=== PATIENT | female | born 1940 | race Caucasian/White ===

== ENCOUNTER → 2016-12-20 | Outpatient (CLI) | payer OTHER ==
[~2016-12-20] MED LIST: ATV/1 PO; CHOL100027 PO; CLOB-65 EXT; DICY10CA55 PO; DRON400T PO; FLUT220A INH; LOSA100T65 PO; METO25TA56 PO; NITR0.4S UT; NYSS/ PO; OPTIRAY 320 IV PRN; PANT40TA PO; POLY335025 PO; RANI300T2 PO
--- NOTE | 2016-12-20 10:15 | DIAGNOSTIC IMAGING REPORT ---
CT OF THE CHEST WITH IV CONTRAST CLINICAL HISTORY: Pulmonary nodules. COMPARISON STUDY: Chest CT July 26, 2014. TECHNIQUE: Following IV administration of 94 mL of Optiray-320, helical axial images of the chest were obtained. Sagittal and coronal reconstructions were viewed as well as maximal intensity projections on an independent 3-D workstation. A dose lowering technique was utilized adhering to the principles of ALARA. CT DOSE: 448.49 mGy.cm FINDINGS: No enlarged axillary, mediastinal or hilar lymph nodes are noted. There is no pericardial effusion. Mild cardiomegaly is noted. Central airways are patent. No pneumothorax or pleural effusion is present. There is no consolidation to suggest pneumonia. Subpleural opacities reflect atelectasis. Multiple calcified granulomas within the lungs are noted. A 4 mm noncalcified right middle lobe nodule shown on image 183 of 306 is unchanged since chest CT of March 27, 2009. A 5 mm right lower lobe nodule along the major fissure shown on image 151 is also unchanged. There are no new pulmonary nodules. There are no suspicious pulmonary nodules. No suspicious osseous lesions are present. The gallbladder is surgically absent. IMPRESSION: 1. No change in multiple noncalcified and calcified pulmonary nodules since exam of March 27, 2009. These are benign given stability. No suspicious pulmonary nodules. 2. No acute intrathoracic findings. Electronically signed by: Darío Medina M.D. 12/20/2016 10:13 AM Dictated Date/Time: 12/20/2016 10:03 AM
== END | disposition home or self-care (01) ==
LOC: C.CTS 09:36
PROVIDERS: ATTEND Physician Assistant
DX: R91.8 Other nonspecific abnormal finding of lung field (principal)

== ENCOUNTER 2020-11-18 01:43 | Inpatient (IN) ==
[2020-11-18] MEDS ORDERED: ONDANSETRON INJ 2 MG/ML 2 ML VIAL IV STA (03:15)
[2020-11-18] MEDS ORDERED: ONDANSETRON INJ 2 MG/ML 2 ML VIAL ONE (03:15)
[2020-11-18 03:25] LABS: Basophils # (auto) 0.01 K/uL (0-0.2); Basophils % (auto) 0.1 %; Eosinophils # (auto) 0.02 K/uL (0-0.5); Eosinophils % (auto) 0.3 %; Hematocrit (blood only) 33.1 % (37-47); Hemoglobin 11.1 g/dL (12.0-16.0); Immature Granulocytes # (auto) 0.11 K/uL (0.00-0.02); Immature Granulocytes % (auto) 1.5 %; Lymphocytes # (auto) 1.02 K/uL (1.2-3.4); Mean Corpuscular Hemoglobin 30.9 pg (25-34); Mean Corpuscular Hgb Conc 33.5 g/dL (32-36); Mean Corpuscular Volume 92.2 fL (80-100); Mean Platelet Volume 9.2 fL (7.4-10.4); Monocytes # (auto) 1.05 K/uL (0.11-0.59); Monocytes % (auto) 14.4 %; Neutrophils # (auto) 5.06 K/uL (1.4-6.5); Neutrophils % (auto) 69.7 %; Platelet Count 347 K/uL (130-400); RDW Coefficient of Variation 13.1 % (11.5-14.5); RDW Standard Deviation 43.9 fL (36.4-46.3); Red Blood Count 3.59 M/uL (4.2-5.4); White Blood Count 7.27 K/uL (4.8-10.8)
[2020-11-18 03:49] LABS: Partial Thromboplastin Ratio 4.1; Prothrombin Time > 90.0 Seconds (9.0-12.0)
[2020-11-18 03:52] LABS: Alanine Aminotransferase 24 U/L (12-78); Aspartate Aminotransferase 18 U/L (15-37); Blood Urea Nitrogen 12 mg/dl (7-18); Calcium 8.8 mg/dl (8.5-10.1); Carbon Dioxide 26 mmol/L (21-32); Chloride 104 mmol/L (98-107); Est GFR (African American) 54.7 ml/min; Est GFR (Non-African American) 47.2 ml/min; Glucose 105 mg/dl (70-99); Magnesium 1.8 mg/dl (1.8-2.4); Potassium 3.8 mmol/L (3.5-5.1); Sodium 134 mmol/L (136-145)
[2020-11-18 03:57] LABS: Albumin Globulin Ratio 0.8 (0.9-2); Alkaline Phosphatase 78 U/L (45-117); Bilirubin,Total 0.6 mg/dl (0.2-1); Globulin 3.7 gm/dl (2.5-4.0); Total Protein 6.7 gm/dl (6.4-8.2); Troponin I < 0.015 ng/ml (0-0.045)
[2020-11-18 03:59] LABS: INR > 10.7 (0.9-1.1); Partial Thromboplastin Time 107.9 Seconds (21.0-31.0)
--- NOTE | 2020-11-18 04:07 | Emergency Department Note ---
History of Present Illness General Chief complaint: Shortness of Breath/Dyspnea Stated complaint: SOB, FEVER, COVID+ Time Seen by Provider: 11/18/20 03:07 Source: patient Mode of arrival: ambulatory Limitations: no limitations History of Present Illness Provider complaint: fevers, shortness of breath Onset (ago): week(s) 2 Location: chest Maximum Pain Intensity: 10 Exacerbated By: + movement Associated symptoms: + cough, + fever/chills, + headaches, + loss of appetite, + malaise and + shortness of breath Treatments prior to arrival: other This is a 80-year-old female presents the emergency department complaining of 2 weeks of fevers, chills, shortness of breath, and cough. Patient states she has been seen at [facility] several times, was given a course of antibiotics as well as a course of prednisone but continued to feel worse. She states she was seen and evaluated there earlier yesterday and had a CAT scan which she states was reported to her as "clear". Patient states her fevers at home have been as high as 102, she did have several days without a fever and then the fevers recurred and today were 100.4. Patient states her cough is productive of green sputum, no hemoptysis. She states she does have chills, body aches, and joint pains. She states he intermittently feels tightness in the chest although denies any other overt chest pain. She states she has been nauseated, has gagged on the mucus at times with frequent coughing although no overt vomiting. Patient denies any change in bowel or bladder function. Patient denies any known sick contact. Gold rowland states in her youth she smoked for approximately 2 years, however she does have a history of COPD and does follow with pulmonology. Patient states she is anticoagulated due to history of atrial fibrillation. Pt seen during a time of high acuity and national emergency pandemic while wearing PPE. Home Medications Medication Instructions Recorded Confirmed Type albuterol sulfate 90 mcg/actuation 2 puff INHALATION Q4H PRN g 03/25/20 11/18/20 History aerosol inhaler cholecalciferol (vitamin D3) 25 75 mcg PO DAILY cap 03/25/20 11/18/20 History mcg (1,000 unit) capsule cyanocobalamin (vitamin B-12) 1,000 mcg PO DAILY 03/25/20 11/18/20 History 1,000 mcg capsule flecainide 50 mg tablet 50 mg PO Q12H 03/25/20 11/18/20 History lorazepam 1 mg tablet 0.5 mg PO BID tab 03/25/20 11/18/20 History losartan 100 mg tablet 100 mg PO DAILY 03/25/20 11/18/20 History nitroglycerin 0.4 mg sublingual 0.4 mg SUBLINGUAL Q5M PRN 03/25/20 11/18/20 History tablet polyethylene glycol 3350 17 gram 17 g PO DAILY PRN 03/25/20 11/18/20 History oral powder packet (Miralax) rosuvastatin 20 mg tablet (Crestor) 20 mg PO DAILY 03/25/20 11/18/20 History warfarin 4 mg tablet See Rx Instructions .ROUTE .COMPLEX 03/25/20 11/18/20 History hydrochlorothiazide 25 mg tablet 25 mg PO .COMPLEX 06/02/20 11/18/20 History magnesium oxide 400 mg PO DAILY 06/02/20 11/18/20 History benzonatate 100 mg capsule 100 mg PO Q4 PRN 11/18/20 11/18/20 History gabapentin 100 mg capsule 100 mg PO HS 11/18/20 11/18/20 History metoprolol succinate 25 mg 25 mg PO DAILY 11/18/20 11/18/20 History tablet,extended release 24 hr ondansetron HCl 4 mg tablet 4 mg PO Q8 PRN 11/18/20 11/18/20 History ropinirole 0.5 mg tablet 0.5 mg PO HS 11/18/20 11/18/20 History zolpidem 5 mg tablet (Ambien) 2.5 - 5 mg PO HS PRN 11/18/20 11/18/20 History Allergies Allergy/AdvReac Type Severity Reaction Status Date / Time adhesive Allergy Unknown BLISTERS Verified 11/18/20 02:23 atorvastatin Allergy Unknown MUSCLE PAIN Verified 11/18/20 02:23 clavulanic acid Allergy Unknown unknown Unverified 11/18/20 02:23 dexamethasone [From Maxitrol] Allergy Unknown Unknown Verified 11/18/20 02:23 latex Allergy Unknown BLISTERS Unverified 11/18/20 02:23 neomycin [From Maxitrol] Allergy Unknown Unknown Verified 11/18/20 02:23 niacin Allergy Unknown RASH Unverified 11/18/20 02:23 polymyxin B [From Maxitrol] Allergy Unknown Unknown Verified 11/18/20 02:23 propranolol Allergy Unknown short of Verified 11/18/20 02:23 breath pyridoxine Allergy Unknown Unknown Verified 11/18/20 02:23 azithromycin Allergy Unknown Verified 11/18/20 02:23 amoxicillin AdvReac Unknown upset Unverified 11/18/20 02:23 stomach ciprofloxacin AdvReac Unknown nausea and Unverified 11/18/20 02:23 vomiting Past Med/Surg History Surgical History H/O breast surgery H/O cardiac radiofrequency ablation H/O colonoscopy H/O esophagogastroduodenoscopy History of cataract surgery History of dental surgery Hx of cholecystectomy Family History Mother Colon cancer Grandmother (Maternal) Liver cancer Grandfather (Paternal) Stomach problems Social History Smoking Status: Never smoker Tobacco Type: Cigarettes Years Smoked: 1; Number of Years Since Quit: 55; Hx Alcohol Use: No Hx Substance Use: No Preferred Language: Welsh Beliefs That Will Affect Care: None Current Living Situation: Alone Current Living Situation Comment: Single story Feels Safe at Home: Yes Assistive Devices: Oxygen - Continuous Review of Systems A total of 10 systems reviewed and were otherwise negative All systems reviewed & are unremarkable except as noted in HPI & below Physical Exam Vital Signs Vital Signs - 24 hr 11/18/20 01:47 11/18/20 02:10 11/18/20 02:13 Temperature 36.5 C 37 C Temperature Source Temporal Artery Scan Oral Pulse Rate 73 Pulse Rate [Apical] 65 Pulse Rate from SpO2 Sensor Pulse Rhythm [Apical] Regular Pulse Strength [Apical] Normal Respiratory Rate 16 18 Respiratory Effort / Characteristics Non-Labored Non-Labored Respiratory Depth Normal Normal Respiratory Pattern Regular Regular Blood Pressure 140/71 Blood Pressure [Right Arm] 150/80 H Blood Pressure Mean 94 Blood Pressure Mean [Right Arm] 103 Pulse Oximetry 91 94 Oxygen Delivery Method Room Air Room Air Oxygen Flow Rate Sepsis Recent Fever Within 48 Hours Yes Sepsis New/Unexplained Change in Mental Status No Sepsis Action Taken by Nursing No Action Required Oxygen Flow Rate - Titration Pulse Oximetry Post Tiitration 11/18/20 02:18 11/18/20 03:00 11/18/20 03:11 Temperature Temperature Source Pulse Rate 78 Pulse Rate [Apical] 80 Pulse Rate from SpO2 Sensor 77 Pulse Rhythm [Apical] Pulse Strength [Apical] Respiratory Rate 23 Respiratory Effort / Characteristics Respiratory Depth Normal Respiratory Pattern Blood Pressure 155/87 H Blood Pressure [Right Arm] 155/87 H Blood Pressure Mean 109 Blood Pressure Mean [Right Arm] 109 Pulse Oximetry 93 86 L 88 L Oxygen Delivery Method Room Air Room Air Room Air Oxygen Flow Rate 4 Sepsis Recent Fever Within 48 Hours Sepsis New/Unexplained Change in Mental Status Sepsis Action Taken by Nursing Oxygen Flow Rate - Titration Pulse Oximetry Post Tiitration 11/18/20 03:21 11/18/20 03:30 Temperature Temperature Source Pulse Rate 79 Pulse Rate [Apical] Pulse Rate from SpO2 Sensor 80 Pulse Rhythm [Apical] Pulse Strength [Apical] Respiratory Rate 16 Respiratory Effort / Characteristics Respiratory Depth Respiratory Pattern Blood Pressure 155/76 H Blood Pressure [Right Arm] Blood Pressure Mean 102 Blood Pressure Mean [Right Arm] Pulse Oximetry 86 L 92 Oxygen Delivery Method Nasal Cannula Nasal Cannula Oxygen Flow Rate 0 4 Sepsis Recent Fever Within 48 Hours Sepsis New/Unexplained Change in Mental Status Sepsis Action Taken by Nursing Oxygen Flow Rate - Titration 4 Pulse Oximetry Post Tiitration 92 GENERAL: alert, ill appearing, well nourished, mild distress, non-toxic, restless, nasal cannula in place due to hypoxia that was noted on room air EYE EXAM: normal conjunctiva, PERRL and EOM's grossly intact OROPHARYNX: no exudate, no erythema, lips, buccal mucosa, and tongue normal and mucous membranes are moist NECK: supple, no nuchal rigidity, no adenopathy, non-tender LUNGS: Decreased b/l to auscultation. Normal chest wall mechanics, no w/r/r HEART: no murmurs, S1 normal and S2 normal ABDOMEN: abdomen soft, non-tender, normo-active bowel sounds, no masses, no rebound or guarding. BACK: Back is symmetrical on inspection and there is no deformity, no midline tenderness, no CVA tenderness. SKIN: no rashes and no bruising UPPER EXTREMITIES: upper extremities are grossly normal. FROM, nml pulses b/l. LOWER EXTREMITIES: No pitting edema. FROM, nml pulses b/l. NEURO EXAM: Normal sensorium, cranial nerves II-XII grossly intact, normal speech, no gross weakness of arms, no gross weakness of legs. Gross sensation intact. Course Course 0411: Case discussed with Dr. Bermudez. Administered Medications Cyanocobalamin (Cyanocobalamin 500 Mcg Tablet (Vitamin B-12)) 1,000 mcg PO DAILY ELAINE Stop: 12/18/20 08:59 Last Admin: 11/19/20 08:14 Dose: 1,000 mcg Documented by: [id number] Admin: 11/18/20 08:55 Dose: 1,000 mcg Documented by: [id number] Flecainide Acetate (Flecainide Acetate 100 Mg Tablet) 50 mg PO Q12 ELAINE Stop: 12/18/20 08:59 Last Admin: 11/19/20 08:11 Dose: 50 mg Documented by: [id number] Admin: 11/18/20 22:28 Dose: 50 mg Documented by: [id number] Admin: 11/18/20 08:55 Dose: 50 mg Documented by: [id number] Fluticasone Furoate (Fluticasone Furoate 100mcg 14 Puffs/Inhaler) 1 puffs INH DAILY ELAINE; Protocol Stop: 12/18/20 08:59 Last Admin: 11/19/20 08:11 Dose: 1 puffs Documented by: [id number] Admin: 11/18/20 08:51 Dose: 1 puffs Documented by: [id number] Hydrochlorothiazide (Hydrochlorothiazide 25 Mg Tab) 25 mg PO [id number] ELAINE Stop: 12/18/20 08:59 Last Admin: 11/18/20 08:55 Dose: 25 mg Documented by: [id number] Dexamethasone 6 mg/ Syringe 1.5 mls @ 1 mls/min IV Q24H ELAINE Stop: 12/18/20 08:59 Last Admin: 11/19/20 08:17 Dose: 1 mls/min Documented by: [id number] Admin: 11/18/20 10:55 Dose: 1 mls/min Documented by: [id number] Lorazepam (Lorazepam 0.5 Mg Tab) 0.5 mg PO BID ELAINE Stop: 12/18/20 08:59 Last Admin: 11/19/20 08:14 Dose: Not Given Documented by: [id number] Admin: 11/18/20 20:27 Dose: Not Given Documented by: [id number] Admin: 11/18/20 08:51 Dose: Not Given Documented by: [id number] Losartan Potassium (Losartan Potassium 50 Mg Tab) 100 mg PO DAILY ELAINE Stop: 12/18/20 08:59 Last Admin: 11/19/20 08:12 Dose: 100 mg Documented by: [id number] Admin: 11/18/20 08:56 Dose: 100 mg Documented by: [id number] Magnesium Oxide (Magnesium Oxide 400 Mg Tab) 400 mg PO DAILY ELAINE Stop: 12/18/20 08:59 Last Admin: 11/19/20 08:14 Dose: 400 mg Documented by: [id number] Admin: 11/18/20 08:56 Dose: 400 mg Documented by: [id number] Metoprolol Succinate (Metoprolol Succ 25mg Ext Rel Tab) 25 mg PO DAILY ELAINE Stop: 12/18/20 08:59 Last Admin: 11/19/20 08:13 Dose: 25 mg Documented by: [id number] Admin: 11/18/20 08:56 Dose: 25 mg Documented by: [id number] Ropinirole HCl (Ropinirole Hcl 0.25 Mg Tablet) 0.5 mg PO HS ELAINE Stop: 12/18/20 20:59 Last Admin: 11/18/20 22:28 Dose: 0.5 mg Documented by: [id number] Rosuvastatin Calcium (Rosuvastatin Calcium 20 Mg Tab) 20 mg PO DAILY ELAINE Stop: 12/18/20 08:59 Last Admin: 11/19/20 08:14 Dose: 20 mg Documented by: [id number] Admin: 11/18/20 08:56 Dose: 20 mg Documented by: [id number] Vitamin D (Cholecalciferol 1,000 Units 25 Mcg Tab) 3,000 units PO DAILY ELAINE Stop: 12/18/20 08:59 Last Admin: 11/19/20 08:12 Dose: 3,000 units Documented by: [id number] Admin: 11/18/20 08:55 Dose: 3,000 units Documented by: [id number] Discontinued Medications Acetaminophen (Ofirmev) 1,000 mg in 100 mls @ 400 mls/hr IV NOW STA Stop: 11/18/20 04:26 Last Infusion: 11/18/20 04:37 Dose: 0 mls/hr Documented by: [id number] Admin: 11/18/20 04:22 Dose: 400 mls/hr Documented by: [id number] Lorazepam (Ativan) 0.5 mg in 1 mls @ 1 mls/min IV NOW STA Stop: 11/18/20 04:13 Last Admin: 11/18/20 04:23 Dose: 1 mls/min Documented by: [id number] Phytonadione 5 mg/ Sodium (Chloride) 50.5 mls @ 101 mls/hr IV ONE ONE Stop: 11/18/20 05:58 Last Infusion: 11/18/20 06:22 Dose: 0 mls/hr Documented by: [id number] Admin: 11/18/20 05:52 Dose: 101 mls/hr Documented by: [id number] Ondansetron HCl (Ondansetron Inj 2 Mg/Ml 2 Ml Vial) Confirm Administered Dose 4 mg .ROUTE .STK-MED ONE Stop: 11/18/20 03:16 Last Admin: 11/18/20 03:16 Dose: Not Given Documented by: [id number] Ondansetron HCl (Ondansetron Inj 2 Mg/Ml 2 Ml Vial) 4 mg IV NOW STA Stop: 11/18/20 03:16 Last Admin: 11/18/20 03:16 Dose: 4 mg Documented by: [id number] Phytonadione (Phytonadione 5 Mg Tab) 2.5 mg PO NOW STA Stop: 11/18/20 05:37 Last Admin: 11/18/20 05:51 Dose: 2.5 mg Documented by: [id number] Ropinirole HCl (Ropinirole Hcl 0.25 Mg Tablet) 0.5 mg PO NOW STA Stop: 11/18/20 05:26 Last Admin: 11/18/20 05:52 Dose: 0.5 mg Documented by: [id number] Critical Care Time Critical Care Time: Yes Total Critical Care Time: 35 Critical care of 35 min performed to assess and manage high likelihood of life- threatening coagulopathy and respiratory failure, involving labs and imaging performed with assessment to evaluate coagulopathy and respiratory failure with frequent reassessment. This time includes bedside time, treatment discussions with patient/family/consultants, documentation time and excludes procedure time. Medical Decision Making Differential Diagnosis Differential diagnoses includes but is not limited to pneumonia, bronchitis, COPD/Asthma exacerbation, pneumothorax, pulmonary embolism, congestive heart failure, acute coronary syndrome Medical Records Attestation: I reviewed the patient's medical records. Home Medications Current Medication List: was personally reviewed by me Laboratory Data Attestation: I reviewed the patient's lab results. Result diagrams: 11/19/20 05:40 11/19/20 05:40 Lab Results 11/18/20 11/18/20 11/18/20 Range/Units 02:35 02:35 03:17 WBC 7.27 (4.8-10.8) K/uL RBC 3.59 L (4.2-5.4) M/uL Hgb 11.1 L (12.0-16.0) g/dL Hct 33.1 L (37-47) % MCV 92.2 (80-100) fL MCH 30.9 (25-34) pg MCHC 33.5 (32-36) g/dL RDW Std Deviation 43.9 (36.4-46.3) fL RDW Coeff of Marjorie 13.1 (11.5-14.5) % Plt Count 347 (130-400) K/uL MPV 9.2 (7.4-10.4) fL Immature Gran % (Auto) 1.5 % Neut % (Auto) 69.7 % Lymph % (Auto) 14.0 % [place] % (Auto) 14.4 % Eos % (Auto) 0.3 % Baso % (Auto) 0.1 % Neut # (Auto) 5.06 (1.4-6.5) K/uL Lymph # (Auto) 1.02 L (1.2-3.4) K/uL [place] # (Auto) 1.05 H (0.11-0.59) K/uL Eos # (Auto) 0.02 (0-0.5) K/uL Baso # (Auto) 0.01 (0-0.2) K/uL Immature Gran # (Auto) 0.11 H (0.00-0.02) K/uL PT (9.0-12.0) Seconds INR (0.9-1.1) APTT (21.0-31.0) Seconds PTT Ratio Sodium (136-145) mmol/L Potassium (3.5-5.1) mmol/L Chloride (98-107) mmol/L Carbon Dioxide (21-32) mmol/L Anion Gap (3-11) BUN (7-18) mg/dl Creatinine (0.6-1.2) mg/dl Est Cr Clr Drug Dosing ml/min Est GFR ( Amer) ml/min Est GFR (Non-Af Amer) ml/min BUN/Creatinine Ratio (10-20) Glucose (70-99) mg/dl Calcium (8.5-10.1) mg/dl Magnesium (1.8-2.4) mg/dl Total Bilirubin (0.2-1) mg/dl AST (15-37) U/L ALT (12-78) U/L Alkaline Phosphatase (45-117) U/L Troponin I (0-0.045) ng/ml Total Protein (6.4-8.2) gm/dl Albumin (3.4-5.0) gm/dl Globulin (2.5-4.0) gm/dl Albumin/Globulin Ratio (0.9-2) COVID-19 Eval Order Covid19 at [facility] SARS-CoV-2 (PCR) POSITIVE A* (Negative) 11/18/20 11/18/20 11/18/20 Range/Units 03:17 03:17 04:29 WBC (4.8-10.8) K/uL RBC (4.2-5.4) M/uL Hgb (12.0-16.0) g/dL Hct (37-47) % MCV (80-100) fL MCH (25-34) pg MCHC (32-36) g/dL RDW Std Deviation (36.4-46.3) fL RDW Coeff of Marjorie (11.5-14.5) % Plt Count (130-400) K/uL MPV (7.4-10.4) fL Immature Gran % (Auto) % Neut % (Auto) % Lymph % (Auto) % [place] % (Auto) % Eos % (Auto) % Baso % (Auto) % Neut # (Auto) (1.4-6.5) K/uL Lymph # (Auto) (1.2-3.4) K/uL [place] # (Auto) (0.11-0.59) K/uL Eos # (Auto) (0-0.5) K/uL Baso # (Auto) (0-0.2) K/uL Immature Gran # (Auto) (0.00-0.02) K/uL PT > 90.0 H > 90.0 H (9.0-12.0) Seconds INR > 10.7 H* > 10.7 H* (0.9-1.1) APTT 107.9 H* 107.0 H* (21.0-31.0) Seconds PTT Ratio 4.1 4.1 Sodium 134 L (136-145) mmol/L Potassium 3.8 (3.5-5.1) mmol/L Chloride 104 (98-107) mmol/L Carbon Dioxide 26 (21-32) mmol/L Anion Gap 4.0 (3-11) BUN 12 (7-18) mg/dl Creatinine 1.11 (0.6-1.2) mg/dl Est Cr Clr Drug Dosing 42.0 ml/min Est GFR ( Amer) 54.7 ml/min Est GFR (Non-Af Amer) 47.2 ml/min BUN/Creatinine Ratio 11.0 (10-20) Glucose 105 H (70-99) mg/dl Calcium 8.8 (8.5-10.1) mg/dl Magnesium 1.8 (1.8-2.4) mg/dl Total Bilirubin 0.6 (0.2-1) mg/dl AST 18 (15-37) U/L ALT 24 (12-78) U/L Alkaline Phosphatase 78 (45-117) U/L Troponin I < 0.015 (0-0.045) ng/ml Total Protein 6.7 (6.4-8.2) gm/dl Albumin 3.0 L (3.4-5.0) gm/dl Globulin 3.7 (2.5-4.0) gm/dl Albumin/Globulin Ratio 0.8 L (0.9-2) COVID-19 Eval Order SARS-CoV-2 (PCR) (Negative) Imaging Data My Impression: X-ray: I interpreted the following studies. Chest: A single view study of the chest was reviewed and was negative for cardiomegaly, effusion, pulmonary edema, or wide mediastinum. Appearance of multifocal pneumonia. ECG Data Attestation: I personally reviewed and interpreted this ECG as follows: Indication: + SOB/dyspnea Rate (beats per minute): 62 Rhythm: + normal sinus ECG Intervals/blocks: + Normal QRS and + Normal QT ECG [place]: + Normal ECG ST segments: + Normal ST segments Additional Comments: Baseline artifact noted MDM Narrative This is an ill-appearing 80-year-old female who presents with persistent shortness of breath over the last 2 weeks despite other outpatient evaluations including antibiotics and steroids. Patient found to be Covid positive with an abnormal chest x-ray and was hypoxic on room air. Patient placed on nasal cannula and did have some improvement. Patient found to have an elevated INR, initially this was rechecked due to concern for possible lab error, however this still resulted high. IV vitamin K was ordered and I suspect her supratherapeutic INR is secondary to recent antibiotics which may have interacted with her warfarin. Patient is chronically anticoagulated due to atrial fibrillation. Patient was in a normal sinus while here. Patient did remain hemodynamically stable, she was cautiously rehydrated and supplemental oxygen continued. Case discussed with hospitalist for additional evaluation and management. I do not s uspect occult bleeding contributing to her presentation her condition here. An order was placed for continuous cardiac monitoring. The monitor shows a rate of _62__ with _normal sinus_ rhythm. Impression & Plan Dyspnea, Hypoxia, COVID-19, Supratherapeutic INR Discharge Plan Visit Data Chief Complaint: Shortness of Breath/Dyspnea Stated Complaint: SOB, FEVER, COVID+ ED Provider: Kalie Scott Discharge Problem: Dyspnea, Hypoxia, COVID-19, Supratherapeutic INR Patient Disposition: Admitted As Inpatient Discharge Instructions Interventions: ED Discharge Assessment Last Done: 11/18/20 08:51 Discharge Problem: Dyspnea Qualifiers: Dyspnea type: shortness of breath Qualified Code(s): R06.02 - Shortness of breath
[2020-11-18] MEDS ORDERED: LORazepam 0.5 MG/1 ML VIAL IV STA (04:12)
[2020-11-18] MEDS ORDERED: ACETAMINOPHEN 1,000 MG/100 ML VIAL IV STA (04:12)
[2020-11-18 04:59] LABS: Partial Thromboplastin Ratio 4.1; Prothrombin Time > 90.0 Seconds (9.0-12.0)
[2020-11-18] MEDS ORDERED: rOPINIRole HCL 0.25 MG TABLET PO STA (05:25)
[2020-11-18 05:27] LABS: INR > 10.7 (0.9-1.1)
[2020-11-18] MEDS ORDERED: PHYTONADIONE 5 MG in SODIUM CHLORIDE 0.9% 50 ML IV ONE (05:29)
[2020-11-18] MEDS ORDERED: PHYTONADIONE 5 MG TAB PO STA (05:36)
--- NOTE | 2020-11-18 07:41 | History and Physical Report ---
DATE OF ADMISSION: 11/18/2020. CHIEF COMPLAINT: Shortness of breath, COVID positive. HISTORY OF PRESENT ILLNESS: This is a 80-year-old female with past medical history significant for hyperlipidemia, history of mild persistent asthma, questionable COPD, paroxysmal atrial fibrillation, CAD, hypertension, peripheral vascular disease, varicose veins of the legs, nonrheumatic mitral valve regurgitation, pulmonary hypertension, irritable bowel syndrome, GERD, stage III chronic kidney disease, fibromyalgia, generalized osteoarthritis, depression, history of breast cancer, history of right parotid adenoma, hypochondriasis, who presents with shortness of breath and cough. The patient was diagnosed with COVID on 11/05/2020. She says she took monoclonal antibodies on 8th day,. Two days before 11/05/2020, she started to develop symptoms. She is having fevers on and off, feeling body aches, weak, tired, poor appetite, loss of sense of smell and taste, not eating much, not getting better. She says she was in [facility] a few times, but they discharged her. Comes here with shortness of breath and she is requiring 4 liters of oxygen. She is also having restless legs symptoms currently, her legs are bothering her. Denies any chest pain. Sick to the stomach, nausea, constipated. Normal bladder movements. No headache, no neck pain, no back pain, no blurred visions, no earache, no runny nose, no sore throat. Hemodynamics are stable. ALLERGIES: ADHESIVES, ATORVASTATIN CLAVULANIC ACID, DEXAMETHASONE FROM MAXITROL, LATEX, NEOMYCIN FROM MAXITROL, NIACIN, POLYMYXIN B FROM MAXITROL, PROPRANOLOL, PYRIDOXINE, AZITHROMYCIN, AMOXICILLIN, CIPROFLOXACIN. PAST MEDICAL HISTORY: As mentioned above. PAST SURGICAL HISTORY: Ablation for dysrhythmia, breast surgery, cataract surgery, colonoscopy, dental surgery, EGDs, EGD with endoscopic ultrasound, laparoscopic cholecystectomy, appendectomy, tonsillectomy, saphenous vein ligation and stripping, total hysterectomy, upper GI endoscopy. MEDICATIONS: The patient is currently on albuterol 2 puffs inhalation q. 4 hours p.r.n., benzonatate 100 mg p.o. q. 4 hours p.r.n., vitamin D 75 mcg p.o. daily, vitamin B12 1000 mcg p.o. daily, flecainide 50 mg p.o. b.i.d., hydrochlorothiazide 25 mg p.o. 3 times a week, Ativan 0.5 mg p.o. b.i.d., losartan 100 mg p.o. daily, magnesium oxide 400 mg p.o. daily, metoprolol succinate 25 mg p.o. daily, nitroglycerin 0.4 sublingual p.r.n., Zofran 4 mg p.o. every 8 hours p.r.n., MiraLax 17 g p.o. daily p.r.n., Requip 0.5 mg p.o. at bedtime, lovastatin 20 mg p.o. daily, warfarin 4 mg as directed, zolpidem 2.5 to 5 mg p.o. at bedtime p.r.n. FAMILY HISTORY: Significant for maternal grandmother had vaginal cancer and liver cancer, paternal grandfather had stomach problems, mother had colon cancer, daughter has PUD. SOCIAL HISTORY: Former [place] smoked for 1-2 years. No alcohol use. No drug use. REVIEW OF SYSTEMS: As per HPI. Rest of the review of systems is negative. PHYSICAL EXAMINATION: GENERAL: The patient is of moderate build, not in acute distress. VITAL SIGNS: Temperature 37, pulse 78, respiratory rate 19, blood pressure 147/76, oxygen 93% on 4 liters, she was saturating 86% on room air. HEENT: Pupils equal, round and reactive to light. Oral mucosa moist. NECK: No JVD, no neck masses. CARDIOVASCULAR: S1 and S2 heard. Regular rate and rhythm. No murmur, no gallop. RESPIRATORY SYSTEM: Normal AP diameter. No accessory muscle use. No wheezing, no crackles. ABDOMEN: Soft, bowel sounds present, nontender, no distention. CENTRAL NERVOUS SYSTEM: Cranial nerves II-XII grossly intact, nonfocal. EXTREMITIES: Lower extremity edema present, no erythema seen. LABORATORY DATA: WBC 7.2, hemoglobin 11.1, hematocrit 33.1, platelets 347. PT greater than 90, INR greater than 10.7, APTT 107. Sodium 134, potassium 3.8, chloride 104, bicarbonate 26, BUN 12, creatinine 1.1, serum glucose 105, calcium 8.8, magnesium 1.8, total bilirubin 0.6, AST 18, ALT 24, alkaline phosphatase 78. Troponin I less than 0.015. SARS-CoV-2 PCR positive. IMAGING DATA: Chest x-ray, multifocal pneumonia. EKG: Sinus rhythm with PACs at the rate of 62. No acute nonspecific ST changes. ASSESSMENT AND PLAN: This is a 80-year-old female who presents with COVID pneumonia. 1. COVID pneumonia: Shortness of breath, hypoxia requiring oxygen. The patient was diagnosed with COVID on 11/05/2020 and _ couple of days before that she started to develop symptoms. . She was treated with prednisone for 5 days. She also had monoclonal antibodies on 8th day,.She was hypoxic in the ER with 86% on room air, she is requiring oxygen. Will continue with Decadron for now, supportive care, monitor in the [facility] tele. 2. History of asthma, history of questionable chronic obstructive pulmonary disease. Follows with pulmonary. Continue her home inhalers and we will place on Xopenex nebs p.r.n. Currently, there is no wheezing on exam. 3. History of paroxysmal atrial fibrillation: Rate controlled with flecainide and metoprolol succinate, on Coumadin. INR supratherapeutic. Getting vitamin K. Holding Coumadin. Follow the PT/INR. 4. History of mild nonobstructive coronary artery disease: Continue her home medication of Toprol-XL and statin. 5. History of hypertension: On Toprol-XL, losartan, hydrochlorothiazide. We will monitor the blood pressure. 6. History of chronic diastolic congestive heart failure: Currently seems to be not on any diuretics. Will monitor for any volume overload. 7. Hyperlipidemia: On statin. 8. Peripheral vascular disease: Status post vein stripping. On statin and Coumadin. 9. Chronic kidney disease stage III: Will follow the labs. 10. Generalized anxiety disorder: Continue her home medications. 11. Deep venous thrombosis prophylaxis: INR supratherapeutic. Follow the PT/INR. DISPOSITION: Closely monitor in the [facility] tele. PT/OT prior to discharge. Social service to help with discharge planning. Job ID: [id number] MTDD
[2020-11-18] MEDS ORDERED: ACETAMINOPHEN 325 MG TAB PO PRN (07:45)
[2020-11-18] MEDS ORDERED: NITROGLYCERIN SL 0.4 MG/TAB TAB SL PRN ×2 (07:45)
[2020-11-18] MEDS ORDERED: POLYETHYLENE (MIRALAX) 17 GM PACK PO PRN (07:45)
--- NOTE | 2020-11-18 08:43 | XRay Report ---
XR chest 1V portable CLINICAL HISTORY: Shortness of breath. COMPARISON STUDY: Chest CT December 20, 2016. FINDINGS: Lung volumes are normal. There is no pneumothorax or pleural effusion. Mild cardiomegaly is unchanged. No evidence for pulmonary edema. Moderate multifocal airspace opacities are noted. IMPRESSION: Moderate multifocal bilateral airspace opacities suggestive of viral pneumonia. Radiogra [facility] follow-up to ensure resolution is recommended. ACT 112: Negative or not required by law. Electronically signed by: Darío Medina M.D. 11/18/2020 8:41 AM
[2020-11-18] MEDS: LORazepam 0.5 MG TAB PO SCH ×2 (08:51→20:27)
[2020-11-18] MEDS: FLUTICASONE FUROATE 100MCG 14 PUFFS/INHALER INH SCH (08:51)
[2020-11-18] MEDS: FLECAINIDE ACETATE 100 MG TABLET PO SCH ×2 (08:55→22:28)
[2020-11-18] MEDS: CYANOCOBALAMIN 500 MCG TABLET (VITAMIN B-12) PO SCH (08:55)
[2020-11-18] MEDS: CHOLECALCIFEROL 1,000 UNITS 25 MCG TAB PO SCH (08:55)
[2020-11-18] MEDS: hydroCHLOROthiazide 25 MG TAB PO SCH (08:55)
[2020-11-18] MEDS: ROSUVASTATIN CALCIUM 20 MG TAB PO SCH (08:56)
[2020-11-18] MEDS: MAGNESIUM OXIDE 400 MG TAB PO SCH (08:56)
[2020-11-18] MEDS: LOSARTAN POTASSIUM 50 MG TAB PO SCH (08:56)
[2020-11-18] MEDS: METOPROLOL SUCC 25MG EXT REL TAB PO SCH (08:56)
[2020-11-18] MEDS: dexAMETHasone 6 MG in SYRINGE 0 ML IV SCH (10:55)
[2020-11-18] MEDS ORDERED: PROMETHAZINE HCL 6.25 MG in SODIUM CHLORIDE 0.9% 50 ML IV PRN (11:16)
--- NOTE | 2020-11-18 16:50 | Hospitalist Progress Note ---
Date of Service November 18, 2020 Assessment & Plan (1) Pneumonia due to COVID-19 virus: Plan: Patient is a 80 yr female who presents with COVID pneumonia. Multifocal pneumonia Secondary to COVID-19 infection Acute respiratory failure with hypoxia CXR:Moderate multifocal bilateral airspace opacities suggestive of viral pneumonia. Radiographic follow-up to ensure resolution is recommended. Diagnosed with COVID on 11/05/2020 Was treated with prednisone for 5 days; Had monoclonal antibodies on 8th day Continue dexamethasone Encouraged to prone Lasix, Albuterol as needed INR supratherapeutic Continue supplemental oxygen as needed Supratherapeutic INR Received Vit K Hold Coumadin for now Denies any bleeding issues Monitor INR H/O Asthma ? COPD Follows with pulmonary Continue home inhalers Paroxysmal atrial fibrillation Continue flecainide, metoprolol succinate Coumadin on hold due to supratherapeutic INR Nonobstructive CAD Continue home meds Hypertension Continue Toprol-XL, losartan, hydrochlorothiazide Chronic diastolic congestive heart failure Continue HCTZ Monitor volume status Hyperlipidemia On statin Peripheral vascular disease S/P vein stripping On statin and Coumadin Chronic kidney disease stage III: Monitor renal function Generalized anxiety disorder Continue home medications DVT Px: INR supratherapeutic Resume Coumadin as able CODE STATUS Full code Admission and Anticipated Discharge Date Admission Date: November 18, 2020 Subjective Patient is seen and examined at bedside States having cough with greenish expectoration Also states having nausea but no vomiting Reports feeling weak, tired and has poor appetite Denies chest pain, dyspnea, dizziness, diarrhea, abdominal pain Updated patient's family over the phone Review of Systems Review of Systems: All systems reviewed & are unremarkable except as noted in Subjective Physical Exam Physical Exam: Physical Exam: Vitals signs as noted above General Appearance:Moderately built and nourished, no apparent distress Head: normocephalic, Atraumatic Eyes: normal inspection, EOMI Neck: supple, Trachea midline Respiratory/Chest: Decreased breath sounds, CTA, No accessory muscle use Cardiovascular: S1, S2, No murmur Abdomen/GI:Soft, Non tender, Bowel sounds present Extremities/Musculoskeletal:normal inspection, 1+ B/L LE edema Neurologic/Psych:AAOX3, grossly no focal neurological deficits Skin: normal color, warm Results & Data Results & Data ([facility]) Vital Signs (Past 12 Hours) Vital Signs Temp Pulse Pulse Pulse Resp BP Pulse Ox 11/18/20 14:58 56 L 11/18/20 14:11 36.6 C 60 20 151/72 H 97 11/18/20 11:07 36.5 C 72 20 157/73 H 95 11/18/20 08:00 62 11/18/20 07:54 36.8 C 80 22 159/79 H 95 11/18/20 07:46 36.8 C 80 22 159/79 H 95 11/18/20 06:00 85 21 148/86 H 92 Laboratory Results Short CBC 11/18/20 Range/Units 03:17 WBC 7.27 (4.8-10.8) K/uL Hgb 11.1 L (12.0-16.0) g/dL Hct 33.1 L (37-47) % Plt Count 347 (130-400) K/uL BMP 11/18/20 03:17 Sodium 134 L Potassium 3.8 Chloride 104 Carbon Dioxide 26 BUN 12 Creatinine 1.11 Glucose 105 H Calcium 8.8 Cardiac Enzymes 11/18/20 Range/Units 03:17 Troponin I < 0.015 (0-0.045) ng/ml Liver Function 11/18/20 Range/Units 03:17 Total Bilirubin 0.6 (0.2-1) mg/dl AST 18 (15-37) U/L ALT 24 (12-78) U/L Alkaline Phosphatase 78 (45-117) U/L Albumin 3.0 L (3.4-5.0) gm/dl
--- NOTE | 2020-11-18 18:56 | Electrocardiogram Report ---
Test Reason : Blood Pressure : / mmHG Vent. Rate : 062 BPM Atrial Rate : 062 BPM P-R Int : 180 ms QRS Dur : 072 ms QT Int : 436 ms P-R-T Axes : 109 004 008 degrees QTc Int : 442 ms Poor data quality, interpretation may be adversely affected Sinus rhythm with Premature atrial complexes Otherwise normal ECG When compared with ECG of 16-OCT-2014 06:59, T wave inversion now evident in Inferior leads Confirmed by Vincent Santo ([id number]) on 11/18/2020 6:55:57 PM Referred By: REFERRED SELF Confirmed By:Homer Santo
[2020-11-18] MEDS: rOPINIRole HCL 0.25 MG TABLET PO SCH (22:28)
[2020-11-19 05:58] LABS: Basophils # (auto) 0.01 K/uL (0-0.2); Basophils % (auto) 0.2 %; Hematocrit (blood only) 31.1 % (37-47); Hemoglobin 10.4 g/dL (12.0-16.0); Immature Granulocytes # (auto) 0.07 K/uL (0.00-0.02); Immature Granulocytes % (auto) 1.2 %; Lymphocytes % (auto) 10.2 %; Mean Corpuscular Hemoglobin 31.1 pg (25-34); Mean Corpuscular Hgb Conc 33.4 g/dL (32-36); Mean Corpuscular Volume 93.1 fL (80-100); Mean Platelet Volume 9.1 fL (7.4-10.4); Monocytes # (auto) 0.26 K/uL (0.11-0.59); Monocytes % (auto) 4.4 %; Neutrophils # (auto) 4.97 K/uL (1.4-6.5); Platelet Count 341 K/uL (130-400); RDW Coefficient of Variation 12.8 % (11.5-14.5); Red Blood Count 3.34 M/uL (4.2-5.4); White Blood Count 5.91 K/uL (4.8-10.8)
[2020-11-19 06:07] LABS: INR 1.3 (0.9-1.1); Prothrombin Time 12.7 Seconds (9.0-12.0)
[2020-11-19 06:22] LABS: BUN Creatinine Ratio 14.9 (10-20); Calcium 8.8 mg/dl (8.5-10.1); Creatinine Clr Calc Pharmacy 46.7 ml/min; Est GFR (African American) 59.9 ml/min; Est GFR (Non-African American) 51.7 ml/min; Magnesium 2.1 mg/dl (1.8-2.4); Potassium 4.1 mmol/L (3.5-5.1)
[2020-11-19] MEDS: FLUTICASONE FUROATE 100MCG 14 PUFFS/INHALER INH SCH (08:11)
[2020-11-19] MEDS: FLECAINIDE ACETATE 100 MG TABLET PO SCH ×2 (08:11→21:42)
[2020-11-19] MEDS: CHOLECALCIFEROL 1,000 UNITS 25 MCG TAB PO SCH (08:12)
[2020-11-19] MEDS: LOSARTAN POTASSIUM 50 MG TAB PO SCH (08:12)
[2020-11-19] MEDS: METOPROLOL SUCC 25MG EXT REL TAB PO SCH (08:13)
[2020-11-19] MEDS: ROSUVASTATIN CALCIUM 20 MG TAB PO SCH (08:14)
[2020-11-19] MEDS: MAGNESIUM OXIDE 400 MG TAB PO SCH (08:14)
[2020-11-19] MEDS: LORazepam 0.5 MG TAB PO SCH ×2 (08:14→21:43)
[2020-11-19] MEDS: CYANOCOBALAMIN 500 MCG TABLET (VITAMIN B-12) PO SCH (08:14)
[2020-11-19] MEDS: dexAMETHasone 6 MG in SYRINGE 0 ML IV SCH (08:17)
[2020-11-19] MEDS: POLYETHYLENE (MIRALAX) 17 GM PACK PO SCH (10:52)
[2020-11-19] MEDS: BENZONATATE 100 MG CAPSULE PO PRN ×2 (10:56→15:21)
--- NOTE | 2020-11-19 13:04 | Hospitalist Progress Note ---
Date of Service November 19, 2020 Assessment & Plan (1) Pneumonia due to COVID-19 virus: Plan: Patient is a 80 yr female who presents with COVID pneumonia. Multifocal pneumonia Secondary to COVID-19 infection Acute respiratory failure with hypoxia CXR:Moderate multifocal bilateral airspace opacities suggestive of viral pneumonia. Radiographic follow-up to ensure resolution is recommended. Diagnosed with COVID on 11/05/2020 Was treated with prednisone for 5 days; Had monoclonal antibodies on 8th day Continue dexamethasone Encouraged to prone Lasix, Albuterol as needed On Coumadin for DVT Px Continue supplemental oxygen as needed Saturating low 90s on 2 L of supplemental oxygen Antitussives as needed Supratherapeutic INR--Resolved Received Vit K INR: > 10.7>1.3 Denies any bleeding issues Monitor INR H/O Asthma ? COPD Follows with pulmonary Continue home inhalers Paroxysmal atrial fibrillation Continue flecainide, metoprolol succinate Resume Coumadin Monitor INR Nonobstructive CAD Continue home meds Hypertension Continue Toprol-XL, losartan, hydrochlorothiazide Chronic diastolic congestive heart failure Continue HCTZ Monitor volume status Hyperlipidemia On statin Peripheral vascular disease S/P vein stripping On statin and Coumadin Chronic kidney disease stage III: Monitor renal function Generalized anxiety disorder Continue home medications DVT Px: Coumadin CODE STATUS Full code Admission and Anticipated Discharge Date Admission Date: November 18, 2020 Subjective Patient is seen and examined at bedside States feeling slightly better. Persistent cough with greenish expectoration Appetite slowly improving Denies chest pain, dyspnea, nausea, vomiting Review of Systems Review of Systems: All systems reviewed & are unremarkable except as noted in Subjective Physical Exam Physical Exam: Physical Exam: Vitals signs as noted above General Appearance:Moderately built and nourished, no apparent distress Head: normocephalic, Atraumatic Eyes: normal inspection, EOMI Neck: supple, Trachea midline Respiratory/Chest: Decreased breath sounds, CTA, No accessory muscle use Cardiovascular: S1, S2, No murmur Abdomen/GI:Soft, Non tender, Bowel sounds present Extremities/Musculoskeletal:normal inspection, 1+ B/L LE edema Neurologic/Psych:AAOX3, grossly no focal neurological deficits Skin: normal color, warm Results & Data Results & Data ([facility]) Vital Signs (Past 12 Hours) Vital Signs Temp Pulse Pulse Resp BP Pulse Ox 11/19/20 07:14 51 L 11/19/20 06:15 35.4 C L 56 L 16 136/72 94 11/19/20 03:52 36.5 C 69 18 135/74 94 Laboratory Results Short CBC 11/19/20 Range/Units 05:40 WBC 5.91 (4.8-10.8) K/uL Hgb 10.4 L (12.0-16.0) g/dL Hct 31.1 L (37-47) % Plt Count 341 (130-400) K/uL BMP 11/19/20 05:40 Sodium 135 L Potassium 4.1 Chloride 105 Carbon Dioxide 26 BUN 15 Creatinine 1.03 Glucose 129 H Calcium 8.8
[2020-11-19] MEDS: WARFARIN SOD 6 MG TAB PO SCH (15:21)
[2020-11-19] MEDS ORDERED: WARFARIN SOD 5 MG TAB PO SCH (16:00)
[2020-11-19] MEDS: ALBUTEROL HFA 8 GM INHALER INH PRN ×2 (18:10→22:05)
[2020-11-19] MEDS: rOPINIRole HCL 0.25 MG TABLET PO SCH (21:45)
[2020-11-19] MEDS ORDERED: LACTULOSE SYRUP 20 GM/30 ML UDC PO STA (22:04)
[2020-11-19] MEDS ORDERED: MELATONIN 3 MG TAB PO PRN (22:05)
[2020-11-19] MEDS: DOCUSATE SODIUM/SENNA 50/8.6MG TAB PO SCH (23:15)
[2020-11-20] MEDS: dexAMETHasone 6 MG in SYRINGE 0 ML IV SCH (08:57)
[2020-11-20] MEDS: ROSUVASTATIN CALCIUM 20 MG TAB PO SCH (08:58)
[2020-11-20] MEDS: FLUTICASONE FUROATE 100MCG 14 PUFFS/INHALER INH SCH (08:58)
[2020-11-20] MEDS: LOSARTAN POTASSIUM 50 MG TAB PO SCH (08:59)
[2020-11-20] MEDS: CHOLECALCIFEROL 1,000 UNITS 25 MCG TAB PO SCH (08:59)
[2020-11-20] MEDS: MAGNESIUM OXIDE 400 MG TAB PO SCH (08:59)
[2020-11-20] MEDS: hydroCHLOROthiazide 25 MG TAB PO SCH ×2 (08:59→16:59)
[2020-11-20] MEDS: DOCUSATE SODIUM/SENNA 50/8.6MG TAB PO SCH ×2 (08:59→21:37)
[2020-11-20] MEDS: METOPROLOL SUCC 25MG EXT REL TAB PO SCH (08:59)
[2020-11-20] MEDS: FLECAINIDE ACETATE 100 MG TABLET PO SCH ×2 (09:00→21:37)
[2020-11-20] MEDS: CYANOCOBALAMIN 500 MCG TABLET (VITAMIN B-12) PO SCH (09:00)
[2020-11-20] MEDS: POLYETHYLENE (MIRALAX) 17 GM PACK PO SCH (09:01)
[2020-11-20] MEDS: LORazepam 0.5 MG TAB PO SCH ×2 (09:04→21:32)
[2020-11-20 09:28] LABS: Hemoglobin 10.8 g/dL (12.0-16.0); Mean Corpuscular Hgb Conc 33.8 g/dL (32-36); Mean Platelet Volume 9.2 fL (7.4-10.4); Platelet Count 422 K/uL (130-400); RDW Coefficient of Variation 12.8 % (11.5-14.5); RDW Standard Deviation 43.5 fL (36.4-46.3); Red Blood Count 3.48 M/uL (4.2-5.4); White Blood Count 11.49 K/uL (4.8-10.8)
[2020-11-20 09:38] LABS: INR 1.4 (0.9-1.1); Prothrombin Time 14.1 Seconds (9.0-12.0)
[2020-11-20 09:54] LABS: BUN Creatinine Ratio 14.4 (10-20); Calcium 9.8 mg/dl (8.5-10.1); Creatinine Clr Calc Pharmacy 45.5 ml/min; Est GFR (African American) 57.8 ml/min; Est GFR (Non-African American) 49.9 ml/min; Potassium 4.1 mmol/L (3.5-5.1)
--- NOTE | 2020-11-20 11:32 | XRay Report ---
XR KUB/Abdomen 1 view CLINICAL HISTORY: constipation COMPARISON STUDY: October 15, 2014 FINDINGS: There are multiple nondilated stool and gas filled loops of bowel are seen throughout the abdomen. Cholecystectomy clips are seen within the right upper quadrant. Degenerative changes of the spine are demonstrated. IMPRESSION: 1. Nonobstructive bowel gas pattern. ACT 112: Negative or not required by law. The above report was generated using voice recognition software. It may contain grammatical, syntax o r spelling errors. Electronically signed by: Kandi Cristobal DO 11/20/2020 11:31 AM
[2020-11-20] MEDS: ZINC SULFATE 220 MG CAPSULE PO SCH (13:22)
--- NOTE | 2020-11-20 15:13 | Hospitalist Progress Note ---
Date of Service November 20, 2020 Assessment & Plan (1) Pneumonia due to COVID-19 virus: Plan: Patient is a 80 yr female who presents with COVID pneumonia. Multifocal pneumonia Secondary to COVID-19 infection Acute respiratory failure with hypoxia CXR:Moderate multifocal bilateral airspace opacities suggestive of viral pneumonia. Radiographic follow-up to ensure resolution is recommended. Diagnosed with COVID on 11/05/2020 Was treated with prednisone for 5 days; Had monoclonal antibodies on 8th day Continue dexamethasone Day # 3 Encouraged to prone Lasix, Albuterol as needed On Coumadin for DVT Px Antitussives as needed Wean off of supplemental oxygen as able PT/OT Supratherapeutic INR--Resolved Received Vit K INR: > 10.7>1.3>1.4 Denies any bleeding issues Monitor INR H/O Asthma ? COPD Follows with pulmonary Continue home inhalers Paroxysmal atrial fibrillation Continue flecainide, metoprolol succinate Continue Coumadin Monitor INR Nonobstructive CAD Continue home meds Hypertension Continue Toprol-XL, losartan, hydrochlorothiazide Chronic diastolic congestive heart failure Continue HCTZ Monitor volume status Hyperlipidemia On statin Peripheral vascular disease S/P vein stripping On statin and Coumadin Chronic kidney disease stage III: Monitor renal function Generalized anxiety disorder Continue home medications DVT Px: Coumadin CODE STATUS Full code Admission and Anticipated Discharge Date Admission Date: November 18, 2020 Subjective Patient is seen and examined at bedside Still feels weak and tired Also states having nausea and, chronic constipation Less cough today Denies chest pain, dyspnea, vomiting, dizziness Review of Systems Review of Systems: All systems reviewed & are unremarkable except as noted in Subjective Physical Exam Physical Exam: Physical Exam: Vitals signs as noted above General Appearance:Moderately built and nourished, no apparent distress Head: normocephalic, Atraumatic Eyes: normal inspection, EOMI Neck: supple, Trachea midline Respiratory/Chest: Decreased breath sounds, CTA, No accessory muscle use Cardiovascular: S1, S2, No murmur Abdomen/GI:Soft, Non tender, Bowel sounds present Extremities/Musculoskeletal:normal inspection, 1+ B/L LE edema Neurologic/Psych:AAOX3, grossly no focal neurological deficits Skin: normal color, warm Results & Data Results & Data ([facility]) Vital Signs (Past 12 Hours) Vital Signs Temp Pulse Pulse Resp BP Pulse Ox 11/20/20 13:42 98 11/20/20 11:22 36.6 C 63 16 157/80 H 95 11/20/20 07:43 36.4 C L 65 16 135/75 97 11/20/20 07:16 52 L 11/20/20 04:15 36.7 C 52 L 14 133/76 95 Laboratory Results Short CBC 11/20/20 Range/Units 08:44 WBC 11.49 H (4.8-10.8) K/uL Hgb 10.8 L (12.0-16.0) g/dL Hct 32.0 L (37-47) % Plt Count 422 H (130-400) K/uL BMP 11/20/20 08:44 Sodium 136 Potassium 4.1 Chloride 104 Carbon Dioxide 27 BUN 15 Creatinine 1.06 Glucose 108 H Calcium 9.8
[2020-11-20] MEDS ORDERED: HYDROCORTISONE HC 2.5% CRM 30GM TUBE EXT PRN (15:41)
[2020-11-20] MEDS: WARFARIN SOD 6 MG TAB PO SCH (15:42)
[2020-11-20] MEDS: rOPINIRole HCL 0.25 MG TABLET PO SCH (21:36)
[2020-11-20] MEDS: ALBUTEROL HFA 8 GM INHALER INH PRN (22:36)
[2020-11-21] MEDS: METOPROLOL SUCC 25MG EXT REL TAB PO SCH (08:40)
[2020-11-21] MEDS: DOCUSATE SODIUM/SENNA 50/8.6MG TAB PO SCH ×2 (08:40→20:20)
[2020-11-21] MEDS: ZINC SULFATE 220 MG CAPSULE PO SCH (08:40)
[2020-11-21] MEDS: FLECAINIDE ACETATE 100 MG TABLET PO SCH ×2 (08:40→20:19)
[2020-11-21] MEDS: MAGNESIUM OXIDE 400 MG TAB PO SCH (08:41)
[2020-11-21] MEDS: FLUTICASONE FUROATE 100MCG 14 PUFFS/INHALER INH SCH (08:41)
[2020-11-21] MEDS: CHOLECALCIFEROL 1,000 UNITS 25 MCG TAB PO SCH (08:41)
[2020-11-21] MEDS: ROSUVASTATIN CALCIUM 20 MG TAB PO SCH (08:41)
[2020-11-21] MEDS: CYANOCOBALAMIN 500 MCG TABLET (VITAMIN B-12) PO SCH (08:41)
[2020-11-21] MEDS: LOSARTAN POTASSIUM 50 MG TAB PO SCH (08:41)
[2020-11-21] MEDS: LORazepam 0.5 MG TAB PO SCH ×2 (08:41→20:20)
[2020-11-21] MEDS: POLYETHYLENE (MIRALAX) 17 GM PACK PO SCH (08:42)
[2020-11-21] MEDS: dexAMETHasone 6 MG in SYRINGE 0 ML IV SCH (08:48)
[2020-11-21 09:04] LABS: INR 2.2 (0.9-1.1); Prothrombin Time 21.1 Seconds (9.0-12.0)
[2020-11-21 09:26] LABS: BUN Creatinine Ratio 16.4 (10-20); Calcium 9.5 mg/dl (8.5-10.1); Creatinine Clr Calc Pharmacy 46.3 ml/min; Est GFR (African American) 59.2 ml/min; Est GFR (Non-African American) 51.1 ml/min
[2020-11-21] MEDS ORDERED: bisacodyL 10 MG SUPP PR PRN (11:12)
[2020-11-21] MEDS ORDERED: FUROSEMIDE 20 MG in SYRINGE 0 ML IV ONE (14:00)
[2020-11-21] MEDS ORDERED: WARFARIN SOD 5 MG TAB PO SCH (16:00)
--- NOTE | 2020-11-21 17:09 | Hospitalist Progress Note ---
Date of Service November 21, 2020 Assessment & Plan (1) Pneumonia due to COVID-19 virus: Plan: Patient is a 80 yr female who presents with COVID pneumonia. Multifocal pneumonia Secondary to COVID-19 infection Acute respiratory failure with hypoxia CXR:Moderate multifocal bilateral airspace opacities suggestive of viral pneumonia. Radiographic follow-up to ensure resolution is recommended. Diagnosed with COVID on 11/05/2020 Was treated with prednisone for 5 days; Had monoclonal antibodies on 8th day Continue dexamethasone Day # 4 Encouraged to prone Lasix, Albuterol as needed On Coumadin for DVT Px Antitussives as needed Wean off of supplemental oxygen as able PT/OT Given a dose of Lasix today Will need 2 step prior to discharge Supratherapeutic INR--Resolved Received Vit K INR: > 10.7>1.3>1.4>2.2 Denies any bleeding issues Monitor INR H/O Asthma ? COPD Follows with pulmonary Continue home inhalers Paroxysmal atrial fibrillation Continue flecainide, metoprolol succinate Continue Coumadin Monitor INR Nonobstructive CAD Continue home meds Hypertension Continue Toprol-XL, losartan, hydrochlorothiazide Chronic diastolic congestive heart failure Continue HCTZ Monitor volume status Hyperlipidemia On statin Peripheral vascular disease S/P vein stripping On statin and Coumadin Chronic kidney disease stage III: Monitor renal function Generalized anxiety disorder Continue home medications DVT Px: Coumadin CODE STATUS Full code Admission and Anticipated Discharge Date Admission Date: November 18, 2020 Subjective Patient is seen and examined at bedside Reports nausea but no vomiting Less cough today Generalized weakness slowly improving Denies chest pain, dyspnea, dizziness Review of Systems Review of Systems: All systems reviewed & are unremarkable except as noted in Subjective Physical Exam Physical Exam: Physical Exam: Vitals signs as noted above General Appearance:Moderately built and nourished, no apparent distress Head: normocephalic, Atraumatic Eyes: normal inspection, EOMI Neck: supple, Trachea midline Respiratory/Chest: Decreased breath sounds, minimal crackles , No accessory muscle use Cardiovascular: S1, S2, No murmur Abdomen/GI:Soft, Non tender, Bowel sounds present Extremities/Musculoskeletal:normal inspection, 1+ B/L LE edema Neurologic/Psych:AAOX3, grossly no focal neurological deficits Skin: normal color, warm Results & Data Results & Data ([facility]) Vital Signs (Past 12 Hours) Vital Signs Temp Pulse Pulse Resp BP Pulse Ox 11/21/20 16:08 36.5 C 65 18 135/78 97 11/21/20 15:27 55 L 11/21/20 13:38 50 L 11/21/20 12:24 36.7 C 59 L 20 173/80 H 59 L 11/21/20 08:38 36.6 C 56 L 18 148/76 H 97 Laboratory Results BMP 11/21/20 08:37 Sodium 136 Potassium 4.0 Chloride 102 Carbon Dioxide 29 BUN 17 Creatinine 1.04 Glucose 91 Calcium 9.5
[2020-11-21] MEDS: rOPINIRole HCL 0.25 MG TABLET PO SCH (20:20)
[2020-11-22] MEDS ORDERED: LACTULOSE SYRUP 20 GM/30 ML UDC PO STA (01:17)
[2020-11-22] MEDS ORDERED: SOD PHOSPHATE/SOD BIPHOSPHATE ENEMA 132 ML BTL PR PRN (01:17)
[2020-11-22] MEDS: FLUTICASONE FUROATE 100MCG 14 PUFFS/INHALER INH SCH (08:26)
[2020-11-22] MEDS: dexAMETHasone 6 MG in SYRINGE 0 ML IV SCH (08:26)
[2020-11-22] MEDS: CHOLECALCIFEROL 1,000 UNITS 25 MCG TAB PO SCH (08:26)
[2020-11-22] MEDS: LOSARTAN POTASSIUM 50 MG TAB PO SCH (08:27)
[2020-11-22] MEDS: CYANOCOBALAMIN 500 MCG TABLET (VITAMIN B-12) PO SCH (08:27)
[2020-11-22] MEDS: FLECAINIDE ACETATE 100 MG TABLET PO SCH ×2 (08:27→21:44)
[2020-11-22] MEDS: DOCUSATE SODIUM/SENNA 50/8.6MG TAB PO SCH ×2 (08:27→21:44)
[2020-11-22] MEDS: METOPROLOL SUCC 25MG EXT REL TAB PO SCH (08:27)
[2020-11-22] MEDS: ROSUVASTATIN CALCIUM 20 MG TAB PO SCH (08:27)
[2020-11-22] MEDS: ZINC SULFATE 220 MG CAPSULE PO SCH (08:27)
[2020-11-22] MEDS: POLYETHYLENE (MIRALAX) 17 GM PACK PO SCH ×2 (08:27→21:45)
[2020-11-22] MEDS: LORazepam 0.5 MG TAB PO SCH ×2 (08:28→21:45)
[2020-11-22] MEDS: MAGNESIUM OXIDE 400 MG TAB PO SCH (08:28)
[2020-11-22 08:58] LABS: INR 3.2 (0.9-1.1); Prothrombin Time 29.3 Seconds (9.0-12.0)
[2020-11-22 09:17] LABS: BUN Creatinine Ratio 17.7 (10-20); Calcium 9.6 mg/dl (8.5-10.1); Est GFR (African American) 55.3 ml/min; Est GFR (Non-African American) 47.7 ml/min; Potassium 4.1 mmol/L (3.5-5.1)
[2020-11-22] MEDS ORDERED: ANUSOL SUPP 1 EA PR ONE (11:13)
--- NOTE | 2020-11-22 15:57 | Hospitalist Progress Note ---
Date of Service November 22, 2020 Assessment & Plan (1) Pneumonia due to COVID-19 virus: Plan: Patient is a 80 yr female who presents with COVID pneumonia. Multifocal pneumonia Secondary to COVID-19 infection Acute respiratory failure with hypoxia CXR:Moderate multifocal bilateral airspace opacities suggestive of viral pneumonia. Radiographic follow-up to ensure resolution is recommended. Diagnosed with COVID on 11/05/2020 Was treated with prednisone for 5 days; Had monoclonal antibodies on 8th day Continue dexamethasone Day # 5 Encouraged to prone Lasix, Albuterol as needed On Coumadin for DVT Px Antitussives as needed Wean off of supplemental oxygen as able PT/OT Saturating low 90s on room air 2 step tomorrow Supratherapeutic INR--Resolved Received Vit K INR: > 10.7>1.3>1.4>3.2 Denies any bleeding issues Monitor INR Need follow-up with Coumadin clinic upon discharge H/O Asthma ? COPD Follows with pulmonary as outpatient Continue home inhalers Paroxysmal atrial fibrillation Continue flecainide, metoprolol succinate Continue Coumadin Monitor INR And adjust Coumadin dose based on INR Nonobstructive CAD Continue home meds Hypertension Continue Toprol-XL, losartan, hydrochlorothiazide Chronic diastolic congestive heart failure Continue HCTZ Monitor volume status Hyperlipidemia On statin Peripheral vascular disease S/P vein stripping On statin and Coumadin Chronic kidney disease stage III: Monitor renal function Generalized anxiety disorder Continue home medications DVT Px: Coumadin CODE STATUS Full code Disposition Likely discharge home tomorrow Admission and Anticipated Discharge Date Admission Date: November 18, 2020 Subjective Patient is seen and examined at bedside States having poor sleep overnight Appetite improved Cough continues to improve Denies dyspnea Had bowel movement today Denies chest pain, dyspnea, dizziness Review of Systems Review of Systems: All systems reviewed & are unremarkable except as noted in Subjective Physical Exam Physical Exam: Physical Exam: Vitals signs as noted above General Appearance:Moderately built and nourished, no apparent distress Head: normocephalic, Atraumatic Eyes: normal inspection, EOMI Neck: supple, Trachea midline Respiratory/Chest: Decreased breath sounds, minimal crackles , No accessory muscle use Cardiovascular: S1, S2, No murmur Abdomen/GI:Soft, Non tender, Bowel sounds present Extremities/Musculoskeletal:normal inspection, 1+ B/L LE edema Neurologic/Psych:AAOX3, grossly no focal neurological deficits Skin: normal color, warm Results & Data Results & Data ([facility]) Vital Signs (Past 12 Hours) Vital Signs Temp Pulse Pulse Resp BP Pulse Ox 11/22/20 12:00 36.6 C 65 18 157/80 H 93 11/22/20 08:29 36.6 C 70 18 167/76 H 94 11/22/20 07:22 50 L 11/22/20 04:14 36.6 C 59 L 16 161/79 H 94 Laboratory Results BMP 11/22/20 08:14 Sodium 135 L Potassium 4.1 Chloride 101 Carbon Dioxide 30 BUN 20 H Creatinine 1.10 Glucose 82 Calcium 9.6
[2020-11-22] MEDS ORDERED: WARFARIN SOD 2.5 MG TAB PO SCH (16:00)
[2020-11-23] MEDS: rOPINIRole HCL 0.25 MG TABLET PO SCH
[2020-11-23] MEDS: POLYETHYLENE (MIRALAX) 17 GM PACK PO SCH (08:38)
[2020-11-23] MEDS: METOPROLOL SUCC 25MG EXT REL TAB PO SCH (08:38)
[2020-11-23] MEDS: LOSARTAN POTASSIUM 50 MG TAB PO SCH (08:38)
[2020-11-23] MEDS: CHOLECALCIFEROL 1,000 UNITS 25 MCG TAB PO SCH (08:38)
[2020-11-23] MEDS: CYANOCOBALAMIN 500 MCG TABLET (VITAMIN B-12) PO SCH (08:39)
[2020-11-23] MEDS: ZINC SULFATE 220 MG CAPSULE PO SCH (08:39)
[2020-11-23] MEDS: DOCUSATE SODIUM/SENNA 50/8.6MG TAB PO SCH (08:39)
[2020-11-23] MEDS: MAGNESIUM OXIDE 400 MG TAB PO SCH (08:39)
[2020-11-23] MEDS: ROSUVASTATIN CALCIUM 20 MG TAB PO SCH (08:39)
[2020-11-23] MEDS: hydroCHLOROthiazide 25 MG TAB PO SCH (08:39)
[2020-11-23] MEDS: dexAMETHasone 6 MG in SYRINGE 0 ML IV SCH (08:39)
[2020-11-23] MEDS: FLECAINIDE ACETATE 100 MG TABLET PO SCH (08:39)
[2020-11-23] MEDS: LORazepam 0.5 MG TAB PO SCH (08:40)
[2020-11-23 08:56] LABS: INR 3.6 (0.9-1.1); Prothrombin Time 33.1 Seconds (9.0-12.0)
[2020-11-23 09:05] LABS: BUN Creatinine Ratio 18.8 (10-20); Calcium 9.5 mg/dl (8.5-10.1); Creatinine Clr Calc Pharmacy 43.5 ml/min; Est GFR (African American) 55.9 ml/min; Est GFR (Non-African American) 48.2 ml/min; Potassium 3.9 mmol/L (3.5-5.1)
--- NOTE | 2020-11-23 09:52 | XRay Report ---
XR chest 1V portable HISTORY: 80 years-old Female covid acute shortness of breath. Viral pneumonia. COMPARISON: Chest radiograph 11/18/2020 TECHNIQUE: Portable AP view of the chest FINDINGS: Cardiac mediastinal and hilar silhouettes are within normal limits. No pneumothorax, pleural effusion or overt pulmonary edema. Right greater than left bilateral airspace opacities are redemonstrated. T here is mildly improved aeration of the left greater than right lungs. Degenerative changes of the sh oulders and spine. IMPRESSION: Mild improvement of the bilateral airspace opacities compatible with multifocal pneumonia . ACT 112: Negative or not required by law. The above report was generated using voice recognition software. It may contain grammatical, syntax o r spelling errors. Electronically signed by: Tray Bran M.D. 11/23/2020 9:51 AM
[2020-11-23] MEDS: FLUTICASONE FUROATE 100MCG 14 PUFFS/INHALER INH SCH (10:50)
--- NOTE | 2020-11-23 13:04 | Hospitalist Progress Note ---
Date of Service November 23, 2020 Assessment & Plan (1) Pneumonia due to COVID-19 virus: Plan: Patient is a 80 yr female who presents with COVID pneumonia. Multifocal pneumonia Secondary to COVID-19 infection Acute respiratory failure with hypoxia CXR:Moderate multifocal bilateral airspace opacities suggestive of viral pneumonia. Radiographic follow-up to ensure resolution is recommended. Diagnosed with COVID on 11/05/2020 Was treated with prednisone for 5 days; Had monoclonal antibodies on 8th day Continue dexamethasone Day # 6 Encouraged to prone Lasix, Albuterol as needed On Coumadin for DVT Px Antitussives as needed Wean off of supplemental oxygen as able PT/OT :Return Home Repeat chest x-ray showed mild improvement of the bilateral airspace opacities Saturating low 90s on room air 2 step: Did not qualify for oxygen Supratherapeutic INR--Resolved Received Vit K INR: > 10.7>1.3>1.4>3.2>3.6 Denies any bleeding issues Monitor INR Need follow-up with Coumadin clinic upon discharge Advised to hold Coumadin today Also advised to follow-up with Coumadin clinic upon discharge H/O Asthma ? COPD Follows with pulmonary as outpatient Continue home inhalers Paroxysmal atrial fibrillation Continue flecainide, metoprolol succinate Continue Coumadin Monitor INR And adjust Coumadin dose based on INR Nonobstructive CAD Continue home meds Hypertension Continue Toprol-XL, losartan, hydrochlorothiazide Chronic diastolic congestive heart failure Continue HCTZ Monitor volume status Hyperlipidemia On statin Peripheral vascular disease S/P vein stripping On statin and Coumadin Chronic kidney disease stage III: Monitor renal function Generalized anxiety disorder Continue home medications DVT Px: Coumadin CODE STATUS Full code Disposition Likely discharge home today Admission and Anticipated Discharge Date Admission Date: November 18, 2020 Subjective Patient is seen and examined at bedside Doing well today No new complaints Appetite continues to improve Minimal intermittent cough Denies chest pain, dyspnea, dizziness Review of Systems Review of Systems: All systems reviewed & are unremarkable except as noted in Subjective Physical Exam Physical Exam: Physical Exam: Vitals signs as noted above General Appearance:Moderately built and nourished, no apparent distress Head: normocephalic, Atraumatic Eyes: normal inspection, EOMI Neck: supple, Trachea midline Respiratory/Chest: Decreased breath sounds, CTA, No accessory muscle use Cardiovascular: S1, S2, No murmur Abdomen/GI:Soft, Non tender, Bowel sounds present Extremities/Musculoskeletal:normal inspection, 1+ B/L LE edema Neurologic/Psych:AAOX3, grossly no focal neurological deficits Skin: normal color, warm Results & Data Results & Data ([facility]) Vital Signs (Past 12 Hours) Vital Signs Temp Pulse Pulse Resp BP Pulse Ox 11/23/20 11:53 36.5 C 71 19 133/77 93 11/23/20 08:31 61 11/23/20 08:26 36.6 C 57 L 18 144/78 H 92 11/23/20 07:00 47 L 11/23/20 01:28 59 L Laboratory Results [facility] 11/23/20 08:07 Sodium 135 L Potassium 3.9 Chloride 102 Carbon Dioxide 27 BUN 21 H Creatinine 1.09 Glucose 98 Calcium 9.5
--- NOTE | 2020-11-23 16:52 | Discharge Summary ---
Date of Service November 23, 2020 Admission HPI Per Admitting Provider CHIEF COMPLAINT: Shortness of breath, COVID positive. HISTORY OF PRESENT ILLNESS: This is a 80-year-old female with past medical history significant for hyperlipidemia, history of mild persistent asthma, questionable COPD, paroxysmal atrial fibrillation, CAD, hypertension, peripheral vascular disease, varicose veins of the legs, nonrheumatic mitral valve regurgitation, pulmonary hypertension, irritable bowel syndrome, GERD, stage III chronic kidney disease, fibromyalgia, generalized osteoarthritis, depression, history of breast cancer, history of right parotid adenoma, hypochondriasis, who presents with shortness of breath and cough. The patient was diagnosed with COVID on 11/05/2020. She says she took monoclonal antibodies on 8th day,. Two days before 11/05/2020, she started to develop symptoms. She is having fevers on and off, feeling body aches, weak, tired, poor appetite, loss of sense of smell and taste, not eating much, not getting better. She says she was in [facility] a few times, but they discharged her. Comes here with shortness of breath and she is requiring 4 liters of oxygen. She is also having restless legs symptoms currently, her legs are bothering her. Denies any chest pain. Sick to the stomach, nausea, constipated. Normal bladder movements. No headache, no neck pain, no back pain, no blurred visions, no earache, no runny nose, no sore throat. Hemodynamics are stable. Admission Exam Per Admitting Provider PHYSICAL EXAMINATION: GENERAL: The patient is of moderate build, not in acute distress. VITAL SIGNS: Temperature 37, pulse 78, respiratory rate 19, blood pressure 147/76, oxygen 93% on 4 liters, she was saturating 86% on room air. HEENT: Pupils equal, round and reactive to light. Oral mucosa moist. NECK: No JVD, no neck masses. CARDIOVASCULAR: S1 and S2 heard. Regular rate and rhythm. No murmur, no gallop. RESPIRATORY SYSTEM: Normal AP diameter. No accessory muscle use. No wheezing, no crackles. ABDOMEN: Soft, bowel sounds present, nontender, no distention. CENTRAL NERVOUS SYSTEM: Cranial nerves II-XII grossly intact, nonfocal. EXTREMITIES: Lower extremity edema present, no erythema seen. Principal Diagnosis Multifocal pneumonia Secondary to COVID-19 infection Supratherapeutic INR Discharge Data Allergies Allergy/AdvReac Type Severity Reaction Status Date / Time adhesive Allergy Unknown BLISTERS Verified 11/18/20 02:23 atorvastatin Allergy Unknown MUSCLE PAIN Verified 11/18/20 02:23 clavulanic acid Allergy Unknown unknown Unverified 11/18/20 02:23 dexamethasone [From Maxitrol] Allergy Unknown Unknown Verified 11/18/20 02:23 latex Allergy Unknown BLISTERS Unverified 11/18/20 02:23 neomycin [From Maxitrol] Allergy Unknown Unknown Verified 11/18/20 02:23 niacin Allergy Unknown RASH Unverified 11/18/20 02:23 polymyxin B [From Maxitrol] Allergy Unknown Unknown Verified 11/18/20 02:23 propranolol Allergy Unknown short of Verified 11/18/20 02:23 breath pyridoxine Allergy Unknown Unknown Verified 11/18/20 02:23 azithromycin Allergy Unknown Verified 11/18/20 02:23 amoxicillin AdvReac Unknown upset Unverified 11/18/20 02:23 stomach ciprofloxacin AdvReac Unknown nausea and Unverified 11/18/20 02:23 vomiting Consultations 11/18/20 04:12 ED Decision to Admit Stat Hospital Course (1) Pneumonia due to COVID-19 virus: Patient is a 80 yr female who presents with COVID pneumonia. Multifocal pneumonia Secondary to COVID-19 infection Acute respiratory failure with hypoxia CXR:Moderate multifocal bilateral airspace opacities suggestive of viral pneumonia. Radiographic follow-up to ensure resolution is recommended. Diagnosed with COVID on 11/05/2020 Was treated with prednisone for 5 days; Had monoclonal antibodies on 8th day Continue dexamethasone Day # 6 Encouraged to prone Lasix, Albuterol as needed On Coumadin for DVT Px Antitussives as needed Wean off of supplemental oxygen as able PT/OT :Return Home Repeat chest x-ray showed mild improvement of the bilateral airspace opacities Saturating low 90s on room air 2 step: Did not qualify for oxygen Supratherapeutic INR--Resolved Received Vit K INR: > 10.7>1.3>1.4>3.2>3.6 Denies any bleeding issues Monitor INR Need follow-up with Coumadin clinic upon discharge Advised to hold Coumadin today Also advised to follow-up with Coumadin clinic upon discharge H/O Asthma ? COPD Follows with pulmonary as outpatient Continue home inhalers Paroxysmal atrial fibrillation Continue flecainide, metoprolol succinate Continue Coumadin Monitor INR And adjust Coumadin dose based on INR Nonobstructive CAD Continue home meds Hypertension Continue Toprol-XL, losartan, hydrochlorothiazide Chronic diastolic congestive heart failure Continue HCTZ Monitor volume status Hyperlipidemia On statin Peripheral vascular disease S/P vein stripping On statin and Coumadin Chronic kidney disease stage III: Monitor renal function Generalized anxiety disorder Continue home medications DVT Px: Coumadin CODE STATUS Full code Disposition Likely discharge home today Total Time Total Time Spent Total Time Spent (In Minutes): 42 minutes Discharge Plan Discharge Items Patient Disposition: Home - Self-Care Reason For Visit: SOB Discharge Diagnosis: Multifocal pneumonia Secondary to COVID-19 infection Supratherapeutic INR Activity: Per Instructions section Exercise/Sports: Wait until after follow-up appointment Non-emergency contact: Primary Care Provider and Specialist Call non-emergency contact if: you have any medication questions, your symptoms worsen, your pain is concerning for you and you have a fever Follow-up/Referrals: Neela Ortiz DO [Primary Care Provider] - (Date & Time 11/26/2020 12:40 PM Provider Neela Ortiz DO Department [facility] PLEASE NOTE THAT THIS IS A TELEPHONE APPOINTMENT. YOUR PHYSICIAN WILL CALL YOU AT THE APPOINTMENT TIME. IF YOU HAVE ANY QUESTIONS REGARDING THIS APPOINTMENT, PLEASE CALL ) Diet: Heart Healthy Addtl Attending Provider Instructions: Follow-up with your primary care physician on 11/26/2020 12:40 PM Follow-up with Coumadin clinic in 1 to 2 days as advised. Your PT/INR is 3.6 today. DO NOT TAKE COUMADIN TODAY (11/23/20) Follow-up with Coumadin clinic tomorrow (11/24/20) for monitoring your PT/INR and adjustment of Coumadin dose as advised. Complete the prednisone course as prescribed. Seek immediate medical attention if your symptoms reoccur or worsen Please take all medications as instructed on discharge list below. Please call if you have any questions or problems. You can reach a [facility] hospitalist on duty at [facility] 24 hours a day by calling [phone] Home Isolation COVID-19 Instructions The following information about Home Isolation is from the CDC Website: https://www.cdc.gov/coronavirus/2019-ncov/hcp/hvhbdgmi-toyqxxa-gaocsk.html Stay home except to get medical care People who are mildly ill with COVID-19 are able to isolate at home during their illness. You should restrict activities outside your home, except for getting medical care. Do not go to work, school, or public areas. Avoid using public transportation, ride-sharing, or taxis. Separate yourself from other people and animals in your home People: As much as possible, you should stay in a specific room and away from other people in your home. Also, you should use a separate bathroom, if available. Animals: You should restrict contact with pets and other animals while you are sick with COVID-19, just like you would around other people. Although there have not been reports of pets or other animals becoming sick with COVID-19, it is still recommended that people sick with COVID-19 limit contact with animals until more information is known about the virus. When possible, have another member of your household care for your animals while you are sick. If you are sick with COVID-19, avoid contact with your pet, including petting, snuggling, being kissed or licked, and sharing food. If you must care for your pet or be around animals while you are sick, wash your hands before and after you interact with pets and wear a face mask. Call ahead before visiting your doctor If you have a medical appointment, call the healthcare provider and tell them that you have or may have COVID-19. This will help the healthcare providers office take steps to keep other people from getting infected or exposed. Wear a face mask You should wear a face mask when you are around other people (e.g., sharing a room or vehicle) or pets and before you enter a healthcare providers office. If you are not able to wear a face mask (for example, because it causes trouble breathing), then people who live with you should not stay in the same room with you, or they should wear a face mask if they enter your room. Cover your coughs and sneezes Cover your mouth and nose with a tissue when you cough or sneeze. Throw used tissues in a lined trash can. Immediately wash your hands with soap and water for at least 20 seconds or, if soap and water are not available, clean your hands with an alcohol-based hand senior network administrator that contains at least 60% alcohol. Clean your hands often Wash your hands often with soap and water for at least 20 seconds, especially after blowing your nose, coughing, or sneezing; going to the bathroom; and before eating or preparing food. If soap and water are not readily available, use an alcohol-based hand senior network administrator with at least 60% alcohol, covering all surfaces of your hands and rubbing them together until they feel dry. Soap and water are the best option if hands are visibly dirty. Avoid touching your eyes, nose, and mouth with unwashed hands. Avoid sharing personal household items You should not share dishes, drinking glasses, cups, eating utensils, towels, or bedding with other people or pets in your home. After using these items, they should be washed thoroughly with soap and water. Clean all high-touch surfaces everyday High touch surfaces include counters, tabletops, doorknobs, bathroom fixtures, toilets, phones, keyboards, tablets, and bedside tables. Also, clean any surfaces that may have blood, stool, or body fluids on them. Use a household cleaning spray or wipe, according to the label instructions. Labels contain instructions for safe and effective use of the cleaning product including precautions you should take when applying the product, such as wearing gloves and making sure you have good ventilation during use of the product. Monitor your symptoms Seek prompt medical attention if your illness is worsening (e.g., difficulty breathing).Beforeseeking care, call your healthcare provider and tell them that you have, or are being evaluated for, COVID-19. Put on a face mask before you enter the facility. These steps will help the healthcare providers office to keep other people in the office or waiting room from getting infected or exposed. Ask your healthcare provider to call the local or state health department. Persons who are placed under active monitoring or facilitated self- monitoring should follow instructions provided by their local health department or occupational health professionals, as appropriate. When working with your local health department check their available hours. If you have a medical emergency and need to call 911, notify the dispatch personnel that you have, or are being evaluated for COVID-19. If possible, put on a face mask before emergency medical services arrive. Discontinuing home isolation Patients with confirmed COVID-19 should remain under home isolation precautions until the risk of secondary transmission to others is thought to be low. The decision to discontinue home isolation precautions should be made on a [id number] basis, in consultation with healthcare providers and state and local health departments. Coronavirus disease 2019 (COVID-19) is a virus that causes a respiratory illness. It is caused by a coronavirus called 2019 novel coronavirus (2019- nCoV). There are many types of coronavirus. Coronaviruses are a very common cause of bronchitis. They may sometimes cause lung infection(pneumonia). Symptoms can range from mild to severe respiratory illness. These viruses are also foundin some animals. COVID-19 was first found in people in [facility], in late 2019. In 2020, several cases of COVID-19 have been confirmed in the [place] Public health officials are working to find the source. How the virus spreads is not yet fully known. It may be spread through droplets of fluid that a person coughs or sneezes into the air. It may be spread if you touch a surface with virus on it, such as a handle or object, and then touch your mouth. What are the symptoms of COVID-19? Some people have no symptoms or mild symptoms. Symptoms may appear 2 to 14 days after contact with the virus. Symptoms can include: Fever Coughing Trouble breathing What are possible complications from COVID-19? In many cases, this virus can cause infection (pneumonia) in both lungs. In some cases, this can cause . How is COVID-19 diagnosed? Your healthcare provider will ask about your symptoms. He or she will also ask about your recent travel and contact with sick people. Testing for the virus is only done through the CDC. If yourhealthcare provider thinks you may have COVID- 19, he or she will work with your local health department and the CDC on testing. Follow all instructions from your healthcare provider. COVID-19 is diagnosed by: Nasal and throat swab. A cotton-tipped swab is wiped inside your nose or throat. This is done to check for viruses in your nasal mucus. Sputum culture. A small sample of mucus coughed from your lungs (sputum) is collected if you have a cough. It is checked for the virus. How is COVID-19 treated? There is currently no medicine to treat the virus. Treatment is done to help your body while it fights the virus. This is known as supportive care. Supportive care may include: Pain medicine. These include acetaminophen and ibuprofen. They are used to help ease pain and reduce fever. Bed rest. This helps your body fight the illness. For severe illness, you may need to stay in the hospital. Care during severe illness may include: IV (intravenous) fluids.These are given through a vein to help keep your body hydrated. Oxygen. Supplemental oxygen or ventilation with a breathing machine (ventilator) may be given. This is done to keep enough oxygen in your body. Are you at risk for COVID-19? If youve been to a place where people have been sick with this virus, you are at risk for infection. You are at risk if you: Recently traveled to an affected area Had contact with a sick person who recently traveled to this area Had contact with a person who was diagnosed with COVID-19 How can COVID-19 be prevented? There is no vaccine yet. The best prevention is to not have contact with the virus. The CDC advises that people should not travel to areas where there are COVID-19 outbreaks right now for any reason that is not urgent. To help prevent spreading the infection, wash your hands often, or use an alcohol-basedhand senior network administrator. If you are in an area with COVID-19: Wash your hands often. Or use an alcohol-based hand senior network administrator often. Only touch your eyes, nose, or mouth with clean hands. Dont have contact with people who are sick. Follow local instructions about being in public. For example, you may be told to not use public transport for a period of time. Stay away from markets that have live or animals. Wash your hands after touching any animals. Don't touch animals that may be sick. Dont share eating or drinking tools with sick people. Dont kiss someone who is sick. Clean surfaces often with disinfectant. If you were in an area with COVID-19 in the last 14 days: Call your healthcare provider. He or she can talk with local health staff to see what action may be needed. Follow all instructions from your provider. Take your temperature every morning and evening for at least 14 days. This is to check for fever. Keep a record of the readings. Keep watch for symptoms of the virus. Tell your provider right away if you have symptoms. If you were in an area with COVID-19 and have a fever or other symptoms: Dont panic. Keep in mind that other illnesses can cause similar symptoms. Stay away from work, school, and public places. Limit physical contact with family members. Don't kiss anyone or share eating or drinking utensils. Clean surfaces you touch with disinfectant. This is to help prevent the virus from spreading. Call your healthcare provider. Explain that you have been exposed to COVID-19 and have symptoms. Do this before going to any hospital. Wait for instructions. Keep in mind that healthcare staff may wear protective equipment such as masks, gowns, gloves, and eye protection. You may be put in a separate room. This is to prevent the possible virus from spreading. Tell the healthcare staff about recent travel. This includes local travel on public transport. Staff may need to find other people you have been in contact with. Follow all instructions the healthcare staff give you. If you have been diagnosed with COVID-19 Follow all instructions from your healthcare provider. Dont leave your home, except to get medical care. Call your healthcare providers office before going. They can prepare and give you instructions. This will help prevent the virus from spreading. Dont go to work, school, or public areas. Dont use public transport or taxis. Stay away from other people in your home. Have them wear face masks around you. Dont share household items or food. Wear a face mask if you can. This includes at home or in a medical facility. Cover your face with a tissue when you cough or sneeze. Throw the tissue away. Wash your hands. Wash your hands often. Caregivers should: Follow all instructions from healthcare staff. Wear a face mask and protective clothing as advised. Wash hands often. Keep track of the sick persons symptoms. Clean surfaces, fabrics, and laundry thoroughly. Keep other people away from the sick person. When to call your healthcare provider Call your healthcare provider: If youve recently traveled and have symptoms If you have been diagnosed with COVID-19 and your symptoms are worse To learn more To find out more about COVID-19, visit the CDC website at www.cdc.gov/coronavirus/2019-ncov/index.html. [employer]. [address] [place] [address] [phone]. All rights reserved. This information is not intended as a substitute for professional medical care. Always follow your healthcare professional's instructions. This information has been adapted from [employer] Pending Studies at Discharge: No Stand-Alone Forms: My [facility], Smoking Cessation Medications and DC Order Prescriptions: New prednisone 20 mg tablet 20 mg PO DAILY 3 Days Qty: 3 RF: 0 Continued cyanocobalamin (vitamin B-12) 1,000 mcg capsule 1,000 mcg PO DAILY RF: 0 warfarin 4 mg tablet See Rx Instructions .ROUTE .COMPLEX RF: 0 lorazepam 1 mg tablet 0.5 mg PO BID RF: 0 losartan 100 mg tablet 100 mg PO DAILY RF: 0 polyethylene glycol 3350 [Miralax] 17 gram powder in packet 17 g PO DAILY PRN (Reason: Constipation) RF: 0 rosuvastatin [Crestor] 20 mg tablet 20 mg PO DAILY RF: 0 albuterol sulfate 90 mcg/actuation HFA aerosol inhaler 2 puff inhalation Q4H PRN (Reason: undecided) RF: 0 nitroglycerin 0.4 mg tablet, sublingual 0.4 mg sublingual Q5M PRN (Reason: Chest Pain) RF: 0 flecainide 50 mg tablet 50 mg PO Q12H RF: 0 cholecalciferol (vitamin D3) 25 mcg (1,000 unit) capsule 75 mcg PO DAILY RF: 0 hydrochlorothiazide 25 mg tablet 25 mg PO .COMPLEX RF: 0 magnesium oxide 400 mg magnesium capsule 400 mg PO DAILY RF: 0 ondansetron HCl 4 mg tablet 4 mg PO Q8 PRN (Reason: Nausea) RF: 0 benzonatate 100 mg capsule 100 mg PO Q4 PRN (Reason: Cough) RF: 0 metoprolol succinate 25 mg tablet extended release 24 hr 25 mg PO DAILY RF: 0 zolpidem [Ambien] 5 mg tablet 2.5 - 5 mg PO HS PRN (Reason: Sleep) RF: 0 ropinirole 0.5 mg Tablet 0.5 mg PO HS RF: 0 gabapentin 100 mg Capsule 100 mg PO HS RF: 0 Discharge Orders: Discharge Order (Routine); Ordered 11/23/20 Ordered By: Jerson Campos Admission Data Admit Date/Time: 11/18/20 05:30 Attending Provider: Jerson Campos Admit Provider: Prabhjot Bermudez Primary Care Provider: Neela Ortiz Other Providers: Prabjhot Bermudez Other Interventions: Discharge Summary Assessment (RN) Last Done: 11/23/20 14:06
== END 2020-11-23 16:16 | disposition home or self-care (01) | DRG 177 ==
LOC: ED 01:43 → 2N 05:30 → 2W 11-22 18:58